=== PATIENT | male | born 1995 | race Two or more races ===

== ENCOUNTER 2022-02-05 04:29 | Emergency (ER) | payer MEDICAID, OTHER ==
[~2022-02-05] VITALS: Ht 172.7 cm; Wt 90.7 kg
[2022-02-05] MEDS ORDERED: diphenhydrAMINE HCL 50 MG/ML VIAL ONE (04:39)
[2022-02-05] MEDS ORDERED: HALOPERIDOL LACTATE INJ 5 MG/ML VIAL ONE (04:39)
[2022-02-05] MEDS ORDERED: LORAZEPAM INJ 2 MG/ML VIAL ONE (04:40)
--- NOTE | 2022-02-05 04:58 | NUR ---
[facility] 89 AND [employer] FOR BIZARRE BEHAVIOR. PER PD AND EMS POSSIBLE OD ON METH AND COCAINE. PT PRESENTS WITH ERRATIC BEHAVIOR SHOUTING AND AGGRESSIVE. SAFETY MEASURES IN PLACE SITTER AT BEDSIDE.
[2022-02-05] MEDS ORDERED: HALOPERIDOL LACTATE INJ 5 MG/ML VIAL IM ONE (05:00)
[2022-02-05] MEDS ORDERED: LORAZEPAM INJ 2 MG/ML VIAL IM ONE (05:00)
[2022-02-05] MEDS ORDERED: diphenhydrAMINE HCL 50 MG/ML VIAL IM ONE (05:00)
[2022-02-05 05:44] LABS: BASOPHILS % (AUTO) 0.1 % (0.0-2.0); EOSINOPHILS % (AUTO) 0.5 % (0.0-6.0); HEMATOCRIT 47 % (39-51); HEMOGLOBIN 15.6 g/dL (13.5-17.5); LYMPHOCYTES # (AUTO) 1.8 K/uL (0.8-4.8); LYMPHOCYTES % (AUTO) 9.7 % (20.0-44.0); MEAN CORPUSCULAR HGB CONC 33 g/dl (31.0-36.0); MEAN CORPUSCULAR VOLUME 93 fL (80-96); MONOCYTES # (AUTO) 1.2 K/uL (0.1-1.30); MONOCYTES % (AUTO) 6.5 % (2.0-12.0); NEUTROPHILS % (AUTO) 83.2 % (43.0-81.0); PLATELET COUNT (AUTO) 417 K/uL (150-450); RED BLOOD CELL COUNT(AUTO) 5.09 MIL/uL (4.5-6.0)
[2022-02-05 06:31] LABS: ALANINE AMINOTRANSFERASE 46 U/L (12-78); ALCOHOL, BLOOD < 3 mg/dL (0-0); ALKALINE PHOSPHATASE 91 U/L (46-116); ASPARTATE AMINOTRANSFERASE 51 U/L (15-37); BILIRUBIN,DIRECT 0.2 mg/dL (0.0-0.2); BILIRUBIN,TOTAL 0.9 mg/dL (0.2-1.0); CALCIUM, SERUM 9.8 mg/dL (8.5-10.1); CARBON DIOXIDE 24 mmol/L (21-32); CHLORIDE 103 mmol/L (98-107); GLUCOSE 115 mg/dL (74-106); POTASSIUM 3.9 mmol/L (3.5-5.1); SODIUM SERUM 136 mmol/L (136-145); TOTAL PROTEIN, SERUM 8.6 g/dL (6.4-8.2); UREA NITROGEN, BLOOD 13 mg/dL (7-18)
--- NOTE | 2022-02-05 06:53 | NUR ---
URINE SENT TO LAB
[2022-02-05 06:55] LABS: ACETAMINOPHEN < 10 ug/ml (10-30)
[2022-02-05 07:48] LABS: BILIRUBIN,URINE NEGATIVE (NEGATIVE); COLOR,URINE YELLOW (YELLOW); LEUKOCYTE ESTERASE ,URINE NEGATIVE (NEGATIVE); NITRITE, URINE NEGATIVE (NEGATIVE); PROTEIN,URINE 1+ mg/dl (NEGATIVE); UGLUCOSE NEGATIVE (NEGATIVE); UROBILINOGEN,URINE 0.2 EU/dL (0.2)
[2022-02-05 08:36] LABS: BACTERIA,URINE Moderate /HPF (None Seen)
[2022-02-05 08:37] LABS: HYALINE CASTS, URINE Moderate /LPF (None Seen)
[2022-02-05 08:38] LABS: SQUAMOUS EPITHELIAL CELL,UR Moderate /HPF (None Seen)
--- NOTE | 2022-02-05 11:15 | NUR ---
PT SLEEPING, ON MONITOR. VSS. EASILY AROUSABLE. WILL CONTINUE TO MONITOR.
--- NOTE | 2022-02-05 15:13 | NUR ---
PT AWAKE, VERBALLY RESPONSIVE. AAOX3. DR FOSTER AT BEDSIDE FOR RE EVAL. MEDCALLY CLEARED. PROVIDED W/ LUNCH TRAY.
--- NOTE | 2022-02-05 15:17 | NUR ---
Patient discharged to home in stable condition. Written and verbal after care instructions given. Patient verbalizes understanding of instruction.
[2022-02-05 15:18] VITALS: BP 135/80
== END 2022-02-05 15:18 | disposition home or self-care (01) ==
LOC: ER 04:31
DX: R46.1 Bizarre personal appearance (principal); R45.1 Restlessness and agitation
CPT/HCPCS: 99284; 96372 ×2; 85025; 80048; 87086; 80076; 81001; 36415; 80143; 80320; 80307; J2060; J1200; J1630; G0480